=== PATIENT | female | born 1965 | race Caucasian/White ===

== ENCOUNTER → 2021-01-13 07:22 | Outpatient (CLI) | payer OTHER, SELFPAY ==
[2021-01-14 18:17] LABS: SARS-CoV-2 RNA PCR Negative
== END ==
PROVIDERS: PCP Internal Medicine
DX: Z01.812 Encounter for preprocedural laboratory examination (principal); Z20.822 Contact with and (suspected) exposure to COVID-19
CPT/HCPCS: C9803; U0003; U0005